=== PATIENT | female | born 1945 | race Caucasian/White ===

== ENCOUNTER 2017-08-11 05:14 | Inpatient (IN) | payer OTHER, BC ==
[2017-08-03 13:20] LABS: HEMATOCRIT 39.8 % (37.0-47.0); HEMOGLOBIN 13.3 gm/dL (12.0-15.0); MCH 31.3 pg (26.0-34.0); MCHC 33.5 g/dL (28.0-37.0); MCV 93.4 fL (80.0-100.0); RBC 4.26 mil/uL (4.20-5.00); RDW 14.1 % (10.5-14.5); WBC 5.5 thou/uL (4.0-11.0)
[2017-08-03 13:22] LABS: URINE BILIRUBIN NEGATIVE (Negative); URINE BLOOD 1+ (Negative); URINE COLOR YELLOW; URINE GLUCOSE-RANDOM* NEGATIVE (Negative); URINE KETONES NEGATIVE (Negative); URINE LEUKOCYTES-REFLEX NEGATIVE (Negative); URINE PROTEIN (DIPSTICK) NEGATIVE (Negative); URINE SPECIFIC GRAVITY 1.015 (1.003-1.035); URINE UROBILINOGEN 0.2 E.U./dl (0.2-1.0)
[2017-08-03 13:35] LABS: CALCIUM 9.7 mg/dL (8.5-10.1); POTASSIUM 4.4 mmol/L (3.5-5.1)
[2017-08-03 13:38] LABS: CASTS None Seen /LPF (None Seen); SQUAMOUS 4-10 Moderate /LPF (0-3)
[2017-08-03 13:40] LABS: AMORPHOUS PHOSPHATES Moderate /LPF (None Seen); URINE RBC 0-2 Rare /HPF (0-2); URINE WBC-REFLEX 0-5 Rare /HPF (0-5)
[~2017-08-11] VITALS: Ht 165.1 cm; Wt 81.6 kg
[2017-08-11] VITALS (12 sets, daily range): BP systolic 100–130; BP diastolic 55–79
--- NOTE | ~2017-08-11 | O ---
[facility] [place] [address] OPERATIVE REPORT Name: JOSEPH AMANDA Room #: 421-P ADM IN M.R.#: [id number] Admission: 08/11/17 Attend Phys: Slick Riley Discharge: Date of : 49 Report #: [id number] THIS REPORT FOR: //name// CC: Slick Garland DATE OF SERVICE: 08/11/2017 PREOPERATIVE DIAGNOSES: Left shoulder osteoarthritis, biceps tendinopathy and partial thickness tearing. POSTOPERATIVE DIAGNOSES: Left shoulder osteoarthritis, biceps tendinopathy and partial thickness tearing, intraarticular chondral loose body. PROCEDURE PERFORMED: Left total shoulder arthroplasty with open biceps tenodesis, multiple loose body removal. SURGEON: Slick Sidhu M.D. PERMASTONE INSTALLER: Evie Palmer PA-C. ANESTHESIA: General with preoperative indwelling interscalene block by Dr. Hazel Mcleod. FLUIDS: 1200 mL crystalloid. ESTIMATED BLOOD LOSS: Approximately 25 mL. IMPLANTS UTILIZED: DePuy Global Unite size 12 stem with 135 degree body, a 48 x 18 eccentric humeral head and a 44 mm anchor peg glenoid. DESCRIPTION OF PROCEDURE: After proper identification of the patient and the operative site in preoperative holding area, the operative site was signed by myself, prophylactic antibiotics given. The patient elected to receive an interscalene block after reviewing the risks, benefits, alternatives and potential complications with Anesthesia. After a satisfactory indwelling interscalene block placement with ultrasound guidance, the patient was carefully brought back to the operative suite. After induction of satisfactory general endotracheal anesthesia, this patient was carefully positioned in the beachchair position with head of bed elevated approximately 40 degrees. Left shoulder was sterilely prepped and draped in usual manner and final skin draping was with Ioban. A Pluck limb positioning system was utilized. Qualified transport assistant utilized throughout the entire procedure to aid in patient limb positioning, visualization and retraction of soft tissues, instrument passage closure and sling application. [address] [address] OPERATIVE REPORT Name: JOSEPH AMANDA Room #: 421-P ADM IN M.R.#: [id number] Admission: 08/11/17 Attend Phys: Slick Riley Discharge: Date of : 49 Report #: [id number] Anterior deltopectoral approach was planned. Skin was incised sharply. Full thickness skin flaps were developed. The cephalic vein was identified and retracted laterally. Through the mid portion of the case, it was noted that there was a small tear within the cephalic vein and this was ligated. Subdeltoid adhesions were freed bluntly and a brown retractor was used to retract the soft tissues. Biceps tendon sheath swelling and tenosynovitis was noted. This was opened and upper border of the pectoralis major tendon was released and the long head of the biceps was tenodesed to the undersurface of this. Remaining tendon was then followed through the bicipital groove which was opened laterally and then into the rotator interval. Joint effusion was evacuated. Anterior circumflex vessels were ligated and cauterized. A lesser tuberosity osteotomy was performed using a thin flexible osteotome. Subscapularis integrity was good. The remainder of the rotator cuff was intact and the anterior capsule was carefully released off the humeral head and anterior neck. Humeral osteophytes were removed with a rongeur, 135 mm cutting glide was then utilized and humeral head osteotomy was performed with an oscillating saw at approximately 25-30 degrees of retroversion, which matched the patient's belkofski retroversion. Humeral head measured approximately 48 mm with 18 mm thickness on the back table and remaining osteophytes were carefully removed. Canal was reamed up to a size 12, which matched the preoperative templating. Size 12 broach was carefully inserted and a protection plate was threaded on to this. At this point, the glenoid was approached. Anterior capsule was carefully released off the subscapularis using blunt dissection with right angle. Thus once this was freed, an anterior Bankart retractor was placed with the axillary nerve identified and protected throughout the entire procedure. The labrum and remaining biceps was excised circumferentially. The inferior capsule was released off the inferior glenoid. Multiple intra-articular loose bodies were removed. Once there was satisfactory glenoid visualization and the soft tissue had been removed from the periphery, a 44 mm glenoid guide provided the best overall fit in size, which matched the preoperative templating. The guidepin was inserted. It appeared to be well seated medially. Glenoid face was then reamed and a step drill was then utilized. Central peg was contained. This area was irrigated. Next, the multipin guide was carefully impacted into position and the peripheral pegs were drilled. Derotation pegs were also utilized. All of these were contained. Wound was again thoroughly irrigated with normal saline. Trial was implanted and impacted into position. It was well seated and appeared to cover the glenoid surface well. This was removed. The area was irrigated with normal saline. FloSeal was placed within the drill holes and the 44 mm anchor peg glenoid was bone grafted on the backtable and bone cement was prepared. This was then mixed and placed within a Tuohy syringe. The shoulder was irrigated, the FloSeal was removed and the peripheral pegs were cemented. Glenoid was then impacted into position and held firmly in place while the cement cured. It was well seated and stable. This was protected with a plastic dura after the cement had hardened and a trial humeral head revealed a 44 mm x 18 mm eccentric head [facility] [address] [place] [address] OPERATIVE REPORT Name: JOSEPH AMANDA Room #: 421-P ADM IN M.R.#: [id number] Admission: 08/11/17 Attend Phys: Slick Riley Discharge: Date of : 49 Report #: [id number] provided a good recreation of the proximal humeral anatomy and provided approximately 50% translation posteriorly. Trial implants were removed. Drill holes were placed within the anterior humerus by the bicipital groove and lesser tuberosity osteotomy where four #2 FiberWires were passed. The Global Unite osteotome was carefully impacted. The stem was prepared on the backtable and assembled and impacted into position with the inferior 2 sutures placed around the stem. This was impacted into position and was appeared excellent fixation was stable. Head was then impacted into position with the eccentricity being placed more posterior and superior. Shoulder was reduced and irrigated. Subscapularis was repaired with four #2 FiberWires in a modified Manuel-Acosta technique and lateral portion of the rotator interval was closed with #2 FiberWire in a xnmvov-[id number]-tjoyl manner. Cuff was nicely reapproximated. The patient was easily rotated approximately 35 degrees of external rotation. One gram of vancomycin powder was utilized deep up to the joint and thoroughly irrigated with normal saline, half of this within the deep tissues, half of it in the subcutaneous tissues. Fascial layer was closed with 0 Vicryl, 2-0 Vicryl with subcutaneous layer followed by a running 3-0 Monocryl with Dermabond applied. Sterile dressing was applied. The patient was awakened and transferred to the recovery room in stable condition. The patient will be immobilized in a sling for 4 weeks postoperatively. By: [id number] Slick Sidhu MD /nt
[~2017-08-11 05:14] MED LIST: ACCUNEB SO1.25 MG/1 INH; ADVAIR HFA 230M12 GM INH; CALCIUM 600 +1 EAC1 PO; CARVEDILOL12.5 MG PO; COZAAR 50 MG TA50 M2 PO; CYMBALTA60 MG PO; FELODIPINE 5 MG5 M1 PO; HYDROCODONE-AP1 EAC6 PO; PRAVACHOL40 MG PO; PROTONIX40 M1 PO; TRAMADOL 50 MG50 MG PO; XANAX 0.5 MG0.5 MG PO
[2017-08-12 04:39] VITALS: BP 141/83
[2017-08-12 06:09] LABS: HEMATOCRIT 35.4 % (37.0-47.0); HEMOGLOBIN 11.7 gm/dL (12.0-15.0)
[2017-08-12 06:15] LABS: POTASSIUM 4.3 mmol/L (3.5-5.1)
[2017-08-12 08:00] VITALS: BP 122/77
[2017-08-12 12:17] VITALS: BP 122/77
== END 2017-08-12 13:18 | disposition home or self-care (01) | DRG 483 ==
LOC: 4E 05:14 → TBA 05:14 → PRE 06:19 → 4E 11:15 → ENTRNSPT 08-12 12:52 → 4E 08-12 13:18
PROVIDERS: Orthopaedic Surgery Sports Medicine; Physician Assistant Surgical
DX: M19.012 Primary osteoarthritis, left shoulder (principal); M65.812 Other synovitis and tenosynovitis, left shoulder; M24.012 Loose body in left shoulder; J44.9 Chronic obstructive pulmonary disease, unspecified; I10 Essential (primary) hypertension; E78.5 Hyperlipidemia, unspecified; K21.9 Gastro-esophageal reflux disease without esophagitis; F32.9 Major depressive disorder, single episode, unspecified; Z96.643 Presence of artificial hip joint, bilateral; Z98.1 Arthrodesis status; Z87.891 Personal history of nicotine dependence; Z91.048 Other nonmedicinal substance allergy status; Z79.51 Long term (current) use of inhaled steroids; Z79.899 Other long term (current) drug therapy; Z28.21 Immunization not carried out because of patient refusal; Z88.8 Allergy status to other drugs, medicaments and biological substances
CPT/HCPCS: 10783; 50010; 50101; 50172; 50386; 50417; 50697; 50733; 50935; 51751; 51771; 52138; 53000; 53078; 54118; 55435; 56521; 56524; 56525; 56526; 56528; 56530; 57095; 62110; 62900; 64041; 64043; 70005